=== PATIENT | male | born 1985 | race Caucasian/White ===

== ENCOUNTER 2020-03-07 21:07 | Emergency (ER) | payer BC, MEDICAID ==
[~2020-03-07] VITALS: Ht 175.3 cm; Wt 72.6 kg
[2020-03-07 21:11] VITALS: BP 128/86
--- NOTE | 2020-03-07 21:20 | NUR ---
34 YEAR OLD MALE COMPLAINS OF ABDOMINAL PAIN X 1 DAY. PT STATES HE HAS NAUSEA, VOMITTING, AND DIARRHEA. PT STATES HE HAS HISTORY OF PANCREATITIS AND THAT HE CONSUMED ALCOHOL X2 DAYS AGO. PT AOX4, BREATHING EVEN AND UNLABORED, SKIN WARM AND DRY. BED IN LOWEST POSITION, LOCKED, BED RAIL UPX1. PT PLACED ON MONITOR, ERMD MADE AWARE. PMH - GALLBLADER REMOVAL, PANCREATITIS ALLERGIES - NKA
[2020-03-07] MEDS ORDERED: NACL 0.9% 2,000 ML IV ONE (21:30)
[2020-03-07] MEDS ORDERED: MORPHINE SULFATE 4 MG/ML SYR IVP ONE ×2 (21:30→22:20)
[2020-03-07] MEDS ORDERED: KETOROLAC 15 MG/ML VIAL IVP ONE (21:30)
[2020-03-07] MEDS ORDERED: ONDANSETRON 4 MG/2 ML VIAL IVP ONE (21:30)
[2020-03-07 21:52] LABS: APPEARANCE,URINE CLEAR (CLEAR); BILIRUBIN,URINE NEGATIVE (NEGATIVE); BLOOD, URINE NEGATIVE (NEGATIVE); COLOR,URINE YELLOW (YELLOW); LEUKOCYTE ESTERASE ,URINE NEGATIVE (NEGATIVE); NITRITE, URINE NEGATIVE (NEGATIVE); PH,URINE 7.5 (5.0-9.0); UGLUCOSE NEGATIVE (NEGATIVE)
[2020-03-07 21:54] LABS: BASOPHILS # (AUTO) 0.1 K/uL (0.00-0.22); BASOPHILS % (AUTO) 1.5 % (0.0-2.0); EOSINOPHILS # (AUTO) 0.1 K/uL (0-0.4); EOSINOPHILS % (AUTO) 0.9 % (0.0-4.0); HEMOGLOBIN 15.2 g/dL (12.0-18.0); LYMPHOCYTES # (AUTO) 2.9 K/uL (2.0-11.5); LYMPHOCYTES % (AUTO) 43.1 % (20.5-51.1); MEAN CORPUSCULAR HEMOGLOBIN 33 pg (27-31); MEAN CORPUSCULAR HGB CONC 35 g/dL (33-37); MEAN CORPUSCULAR VOLUME 93.9 fL (80-94); MONOCYTES # (AUTO) 0.4 K/uL (0.8-1.0); NEUTROPHILS # (AUTO) 3.3 K/uL (1.8-7.7); NEUTROPHILS % (AUTO) 48.5 % (42.2-75.2); PLATELET COUNT (AUTO) 381 K/uL (140-450); RED BLOOD CELL COUNT(AUTO) 4.69 MIL/uL (4.20-6.10); RED CELL DISTRIBUTION WIDTH 14.2 % (11.6-13.7); WHITE BLOOD COUNT (AUTO) 6.7 K/uL (4.8-10.8)
[2020-03-07 22:10] LABS: ALBUMIN 4.5 g/dL (3.4-5.0); ANION GAP 16.8 (8-16); CARBON DIOXIDE 26.5 mmol/L (21-32); CREATININE 0.9 mg/dL (0.6-1.3); POTASSIUM 3.3 mmol/L (3.5-5.1); TOTAL BILIRUBIN 0.6 mg/dL (0.0-1.0)
--- NOTE | 2020-03-07 22:16 | NUR ---
PT STATES STILL NAUSEA AND PAIN, ERMD MADE AWARE
[2020-03-07] MEDS ORDERED: METOCLOPRAMIDE 10 MG/2 ML INJ VIAL IVP ONE (22:20)
--- NOTE | 2020-03-07 23:01 | NUR ---
SALEEMD MADE AWARE PT STILL HAS NAUSEA, BUT PAIN MORE MANAGED 03/10
[2020-03-07] MEDS ORDERED: HALOPERIDOL IM 5 MG/ML VIAL IM ONE (23:05)
[2020-03-07] MEDS ORDERED: PROCHLORPERAZINE 10 MG/2 ML VIAL IVP ONE (23:05)
--- NOTE | 2020-03-08 00:09 | NUR ---
oK rdz in [facility] - 03/08/20 at 0009 by MEDJJ PT STATES NO NAUSEA, PAIN MUCH BETTER 11/10
--- NOTE | 2020-03-08 00:09 | NUR ---
PT STATES NO NAUSEA, PAIN MUCH BETTER 11/10. ERMD MADE AWARE
--- NOTE | 2020-03-08 00:49 | NUR ---
PT ABLE TO CONSUME CUP OF WATER WITHOUT VOMIT, ERMD MADE AWARE
[2020-03-08 01:05] VITALS: BP 112/62
--- NOTE | 2020-03-08 01:05 | NUR ---
Patient discharged with v/s stable. Written and verbal after care instructions about alcoholic gastritis, alcoholic hepatitis, alcohol withdrawal given and explained. Patient alert, oriented and verbalized understanding of instructions. Ambulatory with steady gait. All questions addressed prior to discharge. ID band removed. Patient advised to follow up with PMD. Rx of zofran given. Patient educated on indication of medication including possible reaction and side effects. Opportunity to ask questions provided and answered.
== END 2020-03-08 01:05 | disposition home or self-care (01) ==
LOC: MED 21:07
DX: K86.0 Alcohol-induced chronic pancreatitis (principal); E87.6 Hypokalemia; K29.60 Other gastritis without bleeding; F17.200 Nicotine dependence, unspecified, uncomplicated; F10.129 Alcohol abuse with intoxication, unspecified; Y90.9 Presence of alcohol in blood, level not specified; Z90.49 Acquired absence of other specified parts of digestive tract
CPT/HCPCS: 36415; 80053; 81003; 83690; 85025; 96361; 96372; 96374; 96375; 96376; 99284; J0780; J1630; J1885; J2270; J2405; J2765; J7030